=== PATIENT | female | born 1995 | race Caucasian/White ===

== ENCOUNTER 2017-01-09 05:34 | Emergency (ER) | payer MEDICAID ==
[~2017-01-09] VITALS: Ht 162.6 cm; Wt 98.4 kg
[~2017-01-09 05:34] MED LIST: CALC-226 PO; CALC0.258 PO; CIPR-211 PO; MAGN64TA11 PO; METR500T PO
[2017-01-09 05:35] VITALS: BP_SYST 127
[2017-01-09] MEDS ORDERED: ONDANSETRON 4 MG ODT TAB PO ONE (06:45)
[2017-01-09] MEDS ORDERED: OMEPRAZOLE 20 MG CAPSULE.DR (PriLOSEC) PO ONE (06:45)
[2017-01-09 07:33] VITALS: BP_SYST 131
== END 2017-01-09 07:33 | disposition home or self-care (01) ==
LOC: SED 05:34
DX: R13.10 Dysphagia, unspecified (principal); Z79.899 Other long term (current) drug therapy
CPT/HCPCS: 99283; Q0162